=== PATIENT | female | born 1960 | race Caucasian/White ===

== ENCOUNTER 2017-07-07 21:41 | Emergency (ER) | payer MEDICAID ==
--- NOTE | 2017-07-08 01:37 | ED ---
- HPI Summary HPI Summary: 49 female presents ED with complaints of experiencing a needlestick earlier today. States she was checking a fasting sugar went to put the needle in the dirty sharps container when there was a needle sticking out, sticking her right middle finger. Patient did say she had to remove needle and it did draw blood. Patient is a resident at [facility]. Unknown source patient for needle. Does live with IV drug users. States she has history of hepatitis C. No other complaints or concerns at this time. - History of Current Complaint Chief Complaint: EDExposureBodyFluid Stated Complaint: NEEDLE STICK Time Seen by Provider: 07/08/17 00:41 Date of Incident: 07/07/17 Time of Incident: 17:00 Job Performing at Time of Incident: placing needle into dirty sharps container Needlestick: Hollow Needle Depth of Needlestick: Puncture Depth: superficial puncture Bleeding at Site: Yes Body Fluid Exposure: Blood - Dirty needle sharps container Treatment MANAGED CARE COORDINATOR: Cleaned Wound - With soap and water - Source Information HIV: Unknown Hepatitis: Unknown - Other Discussed Post-Exposure prophylaxis (PEP) for HIV: Accepted Discussed PEP for Hepatitis-B: Accepted Serologic Testing (HIV/HBV) Declined by Patient: Yes PMH/Surg Hx/FS Hx/Imm Hx Endocrine/Hematology History: Denies: Hx Anticoagulant Therapy, Hx Diabetes Cardiovascular History: Denies: Hx Hypertension Respiratory History: Denies: Hx Asthma - Surgical History Surgery Procedure, Year, and Place: N/a - Immunization History Immunizations Up to Date: Yes Infectious Disease History: No Infectious Disease History: Reports: Hx Hepatitis - C Denies: Traveled Outside the [place] in Last 30 Days - Family History Known Family History: Positive: None - Social History Alcohol Use: None Alcohol Amount: Not anymore Substance Use Type: Reports: None Substance Use Comment - Amount & Last Used: Not anymore Smoking Status (MU): Former Smoker Review of Systems Constitutional: Negative Cardiovascular: Negative Respiratory: Negative Positive: Other - needle stick All Other Systems Reviewed And Are Negative: Yes Physical Exam Triage Information Reviewed: Yes Vital Signs On Initial Exam: Initial Vitals Temp Pulse Resp BP Pulse Ox 98.3 F 103 18 117/76 94 07/07/17 21:52 07/07/17 21:52 07/07/17 21:52 07/07/17 21:52 07/07/17 21:52 Vital Signs Reviewed: Yes Appearance: Positive: Well-Appearing, No Pain Distress, Well-Nourished Skin: Positive: Warm, Skin Color Reflects Adequate Perfusion, Dry, Other - Needle stick puncture wound noted right middle finger pad, no active bleeding. Negative: Cold, Numb, Cyanosis @, Pale, Erythema @ Head/Face: Positive: Normal Head/Face Inspection Eyes: Positive: Conjunctiva Clear ENT: Positive: Pharynx normal Neck: Positive: Supple Respiratory/Lung Sounds: Positive: Clear to Auscultation, Breath Sounds Present. Negative: Rales, Rhonchi, Wheezes Cardiovascular: Positive: Normal, RRR, Pulses are Symmetrical in both Upper and Lower Extremities. Negative: Murmur, Rub Abdomen Description: Positive: Nontender, Soft Bowel Sounds: Positive: Present Musculoskeletal: Positive: Normal, Strength/ROM Intact. Negative: Limited @, Abnormal @, Pain @ Neurological: Positive: Normal - Is discharged, Sensory/Motor Intact, Alert, Oriented to Person Place, Time, NV Bundle Intact Distally, Normal Gait Diagnostics - Vital Signs Vital Signs Temp Pulse Resp BP Pulse Ox 07/07/17 23:53 97.9 F 89 16 113/65 93 07/07/17 21:52 98.3 F 103 18 117/76 94 - Laboratory Result Diagrams: 07/08/17 02:05 07/08/17 02:05 Lab Statement: Any lab studies that have been ordered have been reviewed, and results considered in the medical decision making process. Needlestick Course/Dx - Course Course Of Treatment: spoke with Dr Roman about risk, who agrees PrEP should be considered as this increases her risk. also spoke with patient about risk for improvement. being slightly increased due to patient having exposure to IV drug users needles as she is a [facility] resident. Patient does have PMHx of hepatitis C. unknown source patient as this was a dirty needle in the sharps container that stuck her. discussed risks versus benefits of PrEP and situation. although the needlestick itself is considered low risk, patient was in a residency with previous IV drug users with known HIV/hepatits infections. Therefore, decided to begin medication for prophylaxis. Will dispense 7 days supply. Follow up with Dr Mera out patient for monitoring and remaining medication. Baseline labs were drawn, CBC, CMP, HCG, HIV etc. No other concerns at this time. - Diagnoses Provider Diagnoses: Needlestick injury accident Discharge - Sign-Out/Discharge Documenting (check all that apply): Discharge - Discharge Plan Condition: Good Disposition: HOME Patient Education Materials: Needle Stick Injuries (ED), Postexposure Prophylaxis (ED), Body Substance Exposure (ED) Referrals: No Primary Care Phys,NOPCP [Primary Care Provider] - Ede MANSFIELD,Elijah Kramer [Medical Doctor] - Additional Instructions: Take prescribed medication as directed. You have a 7 days supply, and will need to have remaining medication filled and prescribed by Dr Estrada. Call and make an appointment to follow-up with Dr. Myers tomorrow, as you need an appointment for the rest of your medication and to be seen ROBERTO CARLOS. Keep wound area clean and dry. Follow-up with PCP. Any new or worsening symptoms please seek medical attention. - Billing Disposition and Condition Condition: GOOD Disposition: HOME
[2017-07-08] MEDS ORDERED: Tenofovir/Emtricitabine(*) TAB PO ONE ×2 (01:43→05:00)
[2017-07-08] MEDS ORDERED: Raltegravir* 400 MG TAB PO ONE ×2 (01:43→05:00)
[2017-07-08 04:40] VITALS: BP 132/85
[2017-07-08 05:11] LABS: ABS Basophils 0.1 10^3/ul (0-0.2); ABS Eosinophils 0.2 10^3/ul (0-0.6); ABS Lymphocytes 2.4 10^3/ul (1.0-4.8); ABS Monocytes 0.7 10^3/ul (0-0.8); ABS Neutrophils 4.8 10^3/ul (1.5-7.7); ABS Nucleated RBC 0 10^3/ul; Eosinophil % 1.9 % (0-6); Hematocrit 42 % (35-47); Hemoglobin 13.9 g/dl (12.0-16.0); Lymphocyte % 29.7 % (25-47); Mean Corpuscular HGB Conc 33 g/dl (31-36); Mean Corpuscular Hemoglobin 28 pg (27-31); Mean Corpuscular Volume 83 fL (80-97); Mean Platelet Volume 7.5 um3 (7.4-10.4); Nucleated Red Blood Cells % 0; Platelet Count 306 10^3/ul (150-450); Red Blood Count 5.06 10^6/ul (4.0-5.4); Red Cell Distribution Width 19 % (10.5-15); White Blood Count 8.2 10^3/ul (3.5-10.8)
[2017-07-08 05:12] LABS: EGFR Non-African American 75.9 (>60)
== END 2017-07-08 03:00 | disposition home or self-care (01) ==
LOC: ED 21:41
DX: S61.232A Puncture wound without foreign body of right middle finger without damage to nail, initial encounter (principal); W46.0XXA Contact with hypodermic needle, initial encounter; Y92.9 Unspecified place or not applicable; Z87.891 Personal history of nicotine dependence
CPT/HCPCS: 36415; 80053; 84702; 85025; 86703; 86706; 86803; 87340; 99283

== ENCOUNTER 2017-07-10 15:14 | Emergency (ER) | payer MEDICARE, MEDICAID ==
[2017-07-10] MEDS ORDERED: Lidocaine 2% 10 ML* VIAL ONE (18:06)
--- NOTE | 2017-07-10 18:41 | ED ---
Skin Complaint - HPI Summary HPI Summary: Complains of vaginal abscess 1 week with positive purulent drainage, herpes outbreak on vagina 2-3 days, with vaginal itching and burning, irritation with urination, mild vaginal bleeding. History of herpes. Denies fever, cough, sore throat, CP, SOB, N/D/C, abdomen pain, change in BM. Medical history is herpes, DM, bipolar, COPD. - History of Current Complaint Chief Complaint: EDRashSkinAbscess Time Seen by Provider: 07/10/17 17:42 Stated Complaint: RASH Hx Obtained From: Patient Onset/Duration: Started Days Ago Skin Exposure Onset/Duration: Days Ago Timing: Constant Onset Severity: Mild Current Severity: Moderate Pain Intensity: 5 Pain Scale Used: 0-10 Numeric Skin Location: Discrete Aggravating Symptom(s): Nothing Alleviating Symptom(s): Nothing Associated Signs & Symptoms: Drainage - Allergy/Home Medications Allergies/Adverse Reactions: Allergies Allergy/AdvReac Type Severity Reaction Status Date / Time Penicillins Allergy Rash Verified 07/10/17 15:23 Home Medications: Home Medications Gabapentin CAP(*) [Neurontin 300 CAP(*)] 300 mg PO BID 07/10/17 [History Confirmed 07/10/17] Insulin GLARGINE(*) [Lantus(*)] 0 units SUBCUT DAILY 07/10/17 [History Confirmed 07/10/17] Insulin LISPRO* [HumaLOG*] 0 units SUBCUT DIRECTED 07/10/17 [History Confirmed 07/10/17] Multivitamins/Minerals TAB* [Theragran/minerals TAB*] 1 tab PO DAILY 07/10/17 [ History Confirmed 07/10/17] Simvastatin TAB(NF) [Zocor(NF)] 20 mg PO DAILY 07/10/17 [History Confirmed 07/10] Umeclidin/Vilant 62.5 MDI(NF) [ANORO 62.5/25 Ellipta DEVICE (NF)] 1 aer IN DAILY 07/10/17 [History Confirmed 07/10/17] Ziprasidone * [Geodon (generic) *] 40 mg PO DAILY 07/10/17 [History Confirmed ] guaiFENesin [Mucinex] 600 mg PO DAILY PRN 07/10/17 [History Confirmed 07/10/17] PMH/Surg Hx/FS Hx/Imm Hx Endocrine/Hematology History: Denies: Hx Anticoagulant Therapy, Hx Diabetes Cardiovascular History: Denies: Hx Hypertension Respiratory History: Denies: Hx Asthma - Surgical History Surgery Procedure, Year, and Place: N/a Infectious Disease History: No Infectious Disease History: Reports: Hx Hepatitis - C Denies: Traveled Outside the [place] in Last 30 Days - Family History Known Family History: Positive: None - Social History Alcohol Use: None Alcohol Amount: Not anymore Substance Use Type: Reports: None Substance Use Comment - Amount & Last Used: Not anymore Smoking Status (MU): Former Smoker Review of Systems Constitutional: Negative Eyes: Negative ENT: Negative Cardiovascular: Negative Respiratory: Negative Gastrointestinal: Negative Positive: dysuria, pain Musculoskeletal: Negative Skin: Negative Neurological: Negative Psychological: Normal All Other Systems Reviewed And Are Negative: Yes Physical Exam Triage Information Reviewed: Yes Vital Signs On Initial Exam: Initial Vitals Temp Pulse Resp BP Pulse Ox 99.1 F 127 16 113/69 95 07/10/17 15:25 07/10/17 15:25 07/10/17 15:25 07/10/17 15:25 07/10/17 15:25 Vital Signs Reviewed: Yes Appearance: Positive: Well-Appearing Skin: Positive: Warm Head/Face: Positive: Normal Head/Face Inspection Eyes: Positive: Normal Neck: Positive: Supple Respiratory/Lung Sounds: Positive: Clear to Auscultation Cardiovascular: Positive: Normal Abdomen Description: Positive: Nontender Pelvic Exam: Positive: Bimanual Exam Normal, No Cerv. Motion Tender, No Masses, Discharge, Other - No vesicles or other lesions noted. Collection of substance around clitoris under clitoral escamilla, cultured.. Negative: External Exam Normal , Active Bleeding, Blood, Cervicitis, Lesions, Mass, Tender Adnexa Musculoskeletal: Positive: Normal Neurological: Positive: Normal Psychiatric: Positive: Normal AVPU Assessment: Alert - Nicolasa Coma Scale Best Eye Response: 4 - Spontaneous Best Motor Response: 6 - Obeys Commands Best Verbal Response: 5 - Oriented Coma Scale Total: 15 Procedures - Incision and Drainage Site: left suprapubic Anesthesia: Lidocaine Instrument(s): Scalpel Packing: Gauze Diagnostics - Vital Signs Vital Signs Temp Pulse Resp BP Pulse Ox 07/10/17 16:58 111 18 104/67 100 07/10/17 15:25 99.1 F 127 16 113/69 95 - Laboratory Result Diagrams: 07/10/17 20:19 07/10/17 20:19 Lab Statement: Any lab studies that have been ordered have been reviewed, and results considered in the medical decision making process. Course/Dx - Course Course Of Treatment: Results of lab swabs will be phoned into patient as these labs are not resulted on the weekend - Diagnoses Provider Diagnoses: Abscess, Vaginal irritation Is Visit Related: No Discharge - Sign-Out/Discharge Documenting (check all that apply): Discharge - Discharge Plan Condition: Stable Disposition: HOME Patient Education Materials: Abscess (ED), Abscess Follow-up (ED) Referrals: No Primary Care Phys,NOPCP [Primary Care Provider] - Additional Instructions: Follow-up with primary care. Return to the ED for any new or worsening symptoms - Billing Disposition and Condition Condition: STABLE Disposition: HOME
[2017-07-10 19:06] LABS: Urine Appearance Clear; Urine Blood Negative (Negative); Urine Color Yellow; Urine Ketones Negative (Negative); Urine Protein Negative (Negative); Urine Specific Gravity 1.024 (1.010-1.030); Urine Urobilinogen Negative (Negative)
[2017-07-10] MEDS ORDERED: Acetaminophen TAB* 325 MG PO ONE (19:35)
[2017-07-10 20:02] VITALS: BP 101/81
[2017-07-10 20:40] LABS: ABS Basophils 0.1 10^3/ul (0-0.2); ABS Eosinophils 0.1 10^3/ul (0-0.6); ABS Monocytes 0.8 10^3/ul (0-0.8); ABS Neutrophils 5.3 10^3/ul (1.5-7.7); ABS Nucleated RBC 0 10^3/ul; Eosinophil % 1.4 % (0-6); Hematocrit 40 % (35-47); Hemoglobin 13.4 g/dl (12.0-16.0); Mean Corpuscular HGB Conc 33 g/dl (31-36); Mean Corpuscular Hemoglobin 28 pg (27-31); Mean Corpuscular Volume 83 fL (80-97); Mean Platelet Volume 7.7 um3 (7.4-10.4); Nucleated Red Blood Cells % 0; Platelet Count 311 10^3/ul (150-450); Red Blood Count 4.83 10^6/ul (4.0-5.4); Red Cell Distribution Width 19 % (10.5-15); White Blood Count 9.4 10^3/ul (3.5-10.8)
[2017-07-10 20:46] LABS: EGFR Non-African American 63.5 (>60)
[2017-07-10] MEDS ORDERED: ValACYclovir (*) 500 MG TAB PO ONE (21:30)
[2017-07-10] MEDS ORDERED: Sulfamethox/Trimethoprim DS 800/160* TAB PO ONE (21:30)
--- NOTE | 2017-07-14 08:28 | ED ---
Progress - Progress Note Progress Note: Patient's culture results of vaginal area both external and internal reveal 4+ neutrophils 1+ nucleated cells 1+ epithelial and 2+ gram-positive cocci. She also has Finegoldia magna and normal marcin present. She was started on Bactrim at time of discharge as reported indicates she had an abscess that was I&D. She was also complaining of vaginal irritation. She was clinically dx'd w herpes and rx'd bactrim and anti-viral. No further action at this time. Course/Dx - Course Course Of Treatment: Results of lab swabs will be phoned into patient as these labs are not resulted on the weekend - Diagnoses Provider Diagnoses: Abscess, Vaginal irritation Is Visit Related: No Discharge - Sign-Out/Discharge Documenting (check all that apply): Post-Discharge Follow Up - Discharge Plan Condition: Stable Disposition: HOME Prescriptions: Sulfamethox/Trimethoprim DS* [Bactrim DS 800/160 TAB*] 1 tab PO BID 10 Days #20 tab Valacyclovir HCl [Valacyclovir] 500 mg PO BID 5 Days #10 tablet Patient Education Materials: Genital Herpes Simplex (ED), Abscess (ED), Abscess Follow-up (ED) Referrals: No Primary Care Phys,NOPCP [Primary Care Provider] - Additional Instructions: Follow-up with primary care. Return to the ED for any new or worsening symptoms - Billing Disposition and Condition Condition: STABLE Disposition: HOME
== END 2017-07-10 21:58 | disposition home or self-care (01) ==
LOC: ED 15:14
DX: N76.0 Acute vaginitis (principal); B00.9 Herpesviral infection, unspecified; E11.9 Type 2 diabetes mellitus without complications; F31.9 Bipolar disorder, unspecified; J42 Unspecified chronic bronchitis; Z79.4 Long term (current) use of insulin; Z88.0 Allergy status to penicillin; Z87.891 Personal history of nicotine dependence
CPT/HCPCS: 36415; 56405; 80053; 81003; 85025; 87070; 87076; 87205; 87480; 87491; 87510; 87591; 87640; 87641; 87661; 99283; A9270-GY

== ENCOUNTER 2017-07-31 18:09 | Emergency (ER) | payer MEDICARE, MEDICAID ==
[2017-07-31] MEDS ORDERED: Sulfamethox/Trimethoprim DS 800/160* TAB PO ONE (20:29)
--- NOTE | 2017-07-31 20:32 | ED ---
Upper Extremity Pain - HPI Summary HPI Summary: 57F presents with abscess on her left arm. She did have a history of MRSA. She has history of abscess. She states that the pain has been increasing the past 3 days. She denies any fevers. She denies any chills. She states her pain is worse with movement. She denies any streaking from the area. She is a diabetic. Her sugars have been normal. She is a resident at [facility]. She has been placing heat on the area. - History of Current Complaint Chief Complaint: EDGeneral Stated Complaint: ABSCESS UNDER LT ARM Time Seen by Provider: 07/31/17 18:54 - Allergies/Home Medications Allergies/Adverse Reactions: Allergies Allergy/AdvReac Type Severity Reaction Status Date / Time Penicillins Allergy Rash Verified 07/10/17 15:23 Home Medications: Home Medications Bupropion XL* [Wellbutrin XL *] 150 mg PO DAILY 07/31/17 [History Confirmed 03/08] Lisinopril TAB* [Prinivil TAB*] 10 mg PO DAILY 07/31/17 [History Confirmed 07/31] [place] Carbonate [[place] Carbonate 300 mg cap] 300 mg PO DAILY 07/31/17 [ History Confirmed 07/31/17] [place] Carbonate [[place] Carbonate 600 mg cap] 600 mg PO BEDTIME 07/31/17 [ History Confirmed 07/31/17] PMH/Surg Hx/FS Hx/Imm Hx Endocrine/Hematology History: Reports: Hx Diabetes Denies: Hx Anticoagulant Therapy Cardiovascular History: Denies: Hx Hypertension Respiratory History: Denies: Hx Asthma - Surgical History Surgery Procedure, Year, and Place: N/a Infectious Disease History: No Infectious Disease History: Reports: Hx Hepatitis - C Denies: Traveled Outside the [place] in Last 30 Days - Family History Known Family History: Positive: None - Social History Alcohol Use: None Alcohol Amount: Not anymore Substance Use Type: Reports: None Substance Use Comment - Amount & Last Used: Not anymore Smoking Status (MU): Former Smoker Review of Systems Negative: Fever Negative: Chest Pain Negative: Shortness Of Breath Positive: Other - left axillary swelling All Other Systems Reviewed And Are Negative: Yes Physical Exam Triage Information Reviewed: Yes Vital Signs On Initial Exam: Initial Vitals Temp Pulse Resp BP Pulse Ox 99.2 F 88 20 118/63 96 07/31/17 18:11 07/31/17 18:11 07/31/17 18:11 07/31/17 18:11 07/31/17 18:11 Vital Signs Reviewed: Yes Appearance: Positive: Well-Appearing Skin: Positive: Warm, Dry, Other - 3 cm x 2 cm abscess of left axilla Head/Face: Positive: Normal Head/Face Inspection Eyes: Positive: Normal, Conjunctiva Clear ENT: Positive: Pharynx normal Respiratory/Lung Sounds: Positive: Clear to Auscultation, Breath Sounds Present Cardiovascular: Positive: Normal, RRR Musculoskeletal: Positive: Normal Neurological: Positive: Normal Psychiatric: Positive: Normal Procedures - Incision and Drainage Site: left axilla Anesthesia: Local Instrument(s): Scalpel Diagnostics - Vital Signs Vital Signs Temp Pulse Resp BP Pulse Ox 07/31/17 18:11 99.2 F 88 20 118/63 96 - Laboratory Lab Statement: Any lab studies that have been ordered have been reviewed, and results considered in the medical decision making process. Course/Dx - Course Course Of Treatment: 57F presents with abscess on her left arm. She did have a history of MRSA. She has history of abscess. She states that the pain has been increasing the past 3 days. She denies any fevers. She denies any chills. She states her pain is worse with movement. She denies any streaking from the area. She is a diabetic. Her sugars have been normal. She is a resident at [facility]. She has been placing heat on the area. On exam has presented by 2 cm by 3cm abscess of left axilla. I&D area and got copious amount of pus. Placed on Bactrim. Told to return if develops fever. Patient understands agrees with plan. - Diagnoses Differential Diagnosis/HQI/PQRI: Positive: Other - abscess, cellulitis, cyst Provider Diagnoses: Abscess Discharge - Sign-Out/Discharge Documenting (check all that apply): Discharge/Admit/Transfer - Discharge Plan Condition: Good Disposition: HOME Prescriptions: Sulfamethox/Trimethoprim DS* [Bactrim DS 800/160 TAB*] 1 tab PO BID #19 tab Patient Education Materials: Abscess (ED) Referrals: No Primary Care Phys,NOPCP [Primary Care Provider] - Additional Instructions: Take antibiotic twice a day for 10 days, first dose given in ED Apply warm compresses to area Take ibuprofen or Tylenol for pain every 6 hours Return to ED if develop fever, area of redness spreads, or any new or worsening symptoms - Billing Disposition and Condition Condition: GOOD Disposition: HOME
[2017-07-31 20:48] VITALS: BP 154/74
--- NOTE | 2017-08-03 08:48 | ED ---
Progress - Progress Note Progress Note: Patient's preliminary wound culture reveals Staphylococcus Lugdenensis. He was started on Bactrim. MRSA and staph aureus negative. No change in treatment at this time. <Nenita Magallanes - Last Filed: 08/03/17 08:47> Course/Dx - Course Course Of Treatment: 57F presents with abscess on her left arm. She did have a history of MRSA. She has history of abscess. She states that the pain has been increasing the past 3 days. She denies any fevers. She denies any chills. She states her pain is worse with movement. She denies any streaking from the area. She is a diabetic. Her sugars have been normal. She is a resident at [facility]. She has been placing heat on the area. On exam has presented by 2 cm by 3cm abscess of left axilla. I&D area and got copious amount of pus. Placed on Bactrim. Told to return if develops fever. Patient understands agrees with plan. <Nenita Magallanes - Last Filed: 08/03/17 08:47> <Roma Whitlock - Last Filed: 08/09/17 10:05> - Diagnoses Provider Diagnoses: Abscess Discharge - Sign-Out/Discharge Documenting (check all that apply): Post-Discharge Follow Up - Billing Disposition and Condition Condition: GOOD Disposition: HOME <Nenita Magallanes - Last Filed: 08/03/17 08:47> - Billing Disposition and Condition Condition: GOOD Disposition: HOME <Roma Whitlock - Last Filed: 08/09/17 10:05> - Discharge Plan Condition: Good Disposition: HOME Prescriptions: Sulfamethox/Trimethoprim DS* [Bactrim DS 800/160 TAB*] 1 tab PO BID #19 tab Patient Education Materials: Abscess (ED) Referrals: No Primary Care Phys,NOPCP [Primary Care Provider] - Additional Instructions: Take antibiotic twice a day for 10 days, first dose given in ED Apply warm compresses to area Take ibuprofen or Tylenol for pain every 6 hours Return to ED if develop fever, area of redness spreads, or any new or worsening symptoms
--- NOTE | 2017-08-04 23:47 | ED ---
Progress - Progress Note Progress Note: Patient's preliminary wound culture reveals Staphylococcus Lugdenensis. He was started on Bactrim. MRSA and staph aureus negative. No change in treatment at this time. Course/Dx - Course Course Of Treatment: 57F presents with abscess on her left arm. She did have a history of MRSA. She has history of abscess. She states that the pain has been increasing the past 3 days. She denies any fevers. She denies any chills. She states her pain is worse with movement. She denies any streaking from the area. She is a diabetic. Her sugars have been normal. She is a resident at [facility]. She has been placing heat on the area. On exam has presented by 2 cm by 3cm abscess of left axilla. I&D area and got copious amount of pus. Placed on Bactrim. Told to return if develops fever. Patient understands agrees with plan. - Diagnoses Provider Diagnoses: Abscess Discharge - Sign-Out/Discharge Documenting (check all that apply): Post-Discharge Follow Up - Discharge Plan Condition: Good Disposition: HOME Prescriptions: Sulfamethox/Trimethoprim DS* [Bactrim DS 800/160 TAB*] 1 tab PO BID #19 tab Patient Education Materials: Abscess (ED) Referrals: No Primary Care Phys,NOPCP [Primary Care Provider] - Additional Instructions: Take antibiotic twice a day for 10 days, first dose given in ED Apply warm compresses to area Take ibuprofen or Tylenol for pain every 6 hours Return to ED if develop fever, area of redness spreads, or any new or worsening symptoms - Billing Disposition and Condition Condition: GOOD Disposition: HOME
== END 2017-07-31 20:48 | disposition home or self-care (01) ==
LOC: ED 18:09
DX: L02.414 Cutaneous abscess of left upper limb (principal); E11.9 Type 2 diabetes mellitus without complications; Z86.14 Personal history of Methicillin resistant Staphylococcus aureus infection; Z88.0 Allergy status to penicillin; Z87.891 Personal history of nicotine dependence
CPT/HCPCS: 10060; 87070; 87077; 87186; 87205; 87640; 87641; 99283; A9270-GY

== ENCOUNTER 2017-08-12 11:54 | Emergency (ER) | payer MEDICARE, MEDICAID ==
[2017-08-12] MEDS ORDERED: DOXYcycline CAP(*) 100 MG PO ONE (12:52)
--- NOTE | 2017-08-12 12:56 | ED ---
Laceration/Wound HPI - HPI Summary HPI Summary: 57-year-old female presents with tick bite a week ago. States that she's noticed some spreading redness on her right posterior knee. She states that she removed the tick because that was a blood blister at the time. She denies any fevers. She denies any joint aches. She denies any neck stiffness. She denies any history of MRSA. She is diabetic but her sugars are controlled. She has minimal pain. - History of Current Complaint Stated Complaint: POSS TICK BITE Time Seen by Provider: 08/12/17 12:35 Pain Intensity: 0 - Allergy/Home Medications Allergies/Adverse Reactions: Allergies Allergy/AdvReac Type Severity Reaction Status Date / Time Penicillins Allergy Rash Verified 08/12/17 11:55 PMH/Surg Hx/FS Hx/Imm Hx Endocrine/Hematology History: Reports: Hx Diabetes Denies: Hx Anticoagulant Therapy Cardiovascular History: Denies: Hx Hypertension Respiratory History: Denies: Hx Asthma - Surgical History Surgery Procedure, Year, and Place: N/a Infectious Disease History: No Infectious Disease History: Reports: Hx Hepatitis - C Denies: Traveled Outside the in Last 30 Days - Family History Known Family History: Positive: None - Social History Alcohol Use: None Alcohol Amount: Not anymore Substance Use Type: Reports: None Substance Use Comment - Amount & Last Used: Not anymore Smoking Status (MU): Former Smoker Review of Systems Negative: Fever Negative: Chest Pain Negative: Shortness Of Breath Positive: Rash All Other Systems Reviewed And Are Negative: Yes Physical Exam Triage Information Reviewed: Yes Vital Signs On Initial Exam: Initial Vitals Temp Pulse Resp BP Pulse Ox 98.1 F 78 20 99/66 94 08/12/17 11:55 08/12/17 11:55 08/12/17 11:55 08/12/17 11:55 08/12/17 11:55 Vital Signs Reviewed: Yes Appearance: Positive: Well-Appearing Skin: Positive: Warm, Dry, Other - erythema behind right knee, not warm to touch , no abscess felt, no clearing Head/Face: Positive: Normal Head/Face Inspection Eyes: Positive: Normal, Conjunctiva Clear Respiratory/Lung Sounds: Positive: Clear to Auscultation, Breath Sounds Present Cardiovascular: Positive: Normal, RRR Musculoskeletal: Positive: Normal Neurological: Positive: Normal Psychiatric: Positive: Normal Diagnostics - Vital Signs Vital Signs Temp Pulse Resp BP Pulse Ox 08/12/17 11:55 98.1 F 78 20 99/66 94 - Laboratory Lab Statement: Any lab studies that have been ordered have been reviewed, and results considered in the medical decision making process. Laceration Repair Course/Dx - Course Course Of Treatment: 57-year-old female presents with tick bite a week ago. States that she's noticed some spreading redness on her right posterior knee. She states that she removed the tick because that was a blood blister at the time. She denies any fevers. She denies any joint aches. She denies any neck stiffness. She denies any history of MRSA. She is diabetic but her sugars are controlled. She has minimal pain. on exam has redness of right posterior knee with no streaking. will treat as lyme as will cover for cellulitis also. no abscess felt although may abscess in future. prescribe doxycyline. patient understand and agrees with plan. - Differential Dx Differental Diagnoses: Cellulitis, Other - tick, EM, lyme - Clinical Impression Provider Diagnoses: Tick bite Discharge - Sign-Out/Discharge Documenting (check all that apply): Discharge/Admit/Transfer - Discharge Plan Condition: Good Disposition: HOME Prescriptions: DOXYcycline CAP(*) [DOXYcycline 100MG CAP(*)] 100 mg PO BID #27 cap Patient Education Materials: Lyme Disease (ED) Referrals: No Primary Care Phys,NOPCP [Primary Care Provider] - Additional Instructions: Will try for presumptive lyme disease Take doxycycline twice a day for 14 days, will cause to be sensitive to sun Take tyenlol every 6 hours for pain as needed Return to ED if develop any new or worsening symptoms - Billing Disposition and Condition Condition: GOOD Disposition: HOME
[2017-08-12 13:09] VITALS: BP 147/81
== END 2017-08-12 13:08 | disposition home or self-care (01) ==
LOC: ED 11:54
DX: S80.261A Insect bite (nonvenomous), right knee, initial encounter (principal); W57.XXXA Bitten or stung by nonvenomous insect and other nonvenomous arthropods, initial encounter; Y92.9 Unspecified place or not applicable; Z87.891 Personal history of nicotine dependence; E11.9 Type 2 diabetes mellitus without complications
CPT/HCPCS: 99281; A9270-GY